=== PATIENT | male | born 1965 | race Caucasian/White ===

== ENCOUNTER 2019-01-14 11:56 | Emergency (ER) | payer OTHER ==
--- NOTE | 2019-01-14 12:35 | UC ---
Knee Pain HPI - HPI Summary HPI Summary: 53 yo male presents with RIGHT knee pain since 01/10. He tells me that he was getting up from his desk at work and felt that his right "gave out" and "bent backwards". Had immediate pain, but was able to continue walking. Since that time has had increased pain and feels that it is swollen. He has been trying to rest and elevate it, but with little relief. Yesterday he was walking and heard a loud pop in his knee. Feels unstable when he is walking. Has taken some ibuprofen for discomfort with little change. Denies numbness or tingling. - History of Current Complaint Stated Complaint: KNEE INJURY Time Seen by Provider: 01/14/19 12:35 Onset/Duration: Sudden Onset Severity Initially: Moderate Severity Currently: Moderate Pain Intensity: 5 Pain Scale Used: 0-10 Numeric - Allergies/Home Medications Allergies/Adverse Reactions: Allergies Allergy/AdvReac Type Severity Reaction Status Date / Time No Known Allergies Allergy Verified 01/14/19 12:43 Home Medications: Home Medications Varenicline 0.5 mg Tab(Nf) [Chantix 0.5 MG TAB(NF)] 0.5 mg PO BID MDD 2 [History Confirmed 01/14/19] PMH/Surg Hx/FS Hx/Imm Hx - Additional Past Medical History Additional PMH: None - Surgical History Surgical History: None - Family History Known Family History: Positive: None - Social History Occupation: Employed Full-time Lives: With Family Alcohol Use: Occasionally Substance Use Type: None Smoking Status (MU): Light Every Day Tobacco Smoker Type: Cigarettes Review of Systems All Other Systems Reviewed And Are Negative: Yes Constitutional: Positive: Negative Skin: Positive: Negative Respiratory: Positive: Negative Cardiovascular: Positive: Negative Neurovascular: Positive: Negative Musculoskeletal: Positive: Other: - Right knee pain Neurological: Positive: Negative Psychological: Positive: Negative Physical Exam - Summary Physical Exam Summary: GENERAL: NAD. WDWN. No pain distress. SKIN: No rashes, sores, lesions, or open wounds. CHEST: No accessory muscle use. Breathing comfortably and in no distress. CV: . Pulses intact popliteal, PT, and DP. Cap refill <2seconds MSK: RIGHT KNEE: Mild edema at joint line. Mild TTP at posterior knee. FROM with worsening pain during full extension. Strength 5/5. POSITIVE Anish. No patella apprehension. Negative Fara, A/P drawer, and varus/valgus stress. NEURO: Alert. Sensations intact and symmetric B/L LEs PSYCH: Age appropriate behavior. Triage Information Reviewed: Yes Vital Signs: Vital Signs: Temp Pulse Resp BP Pulse Ox 98.2 F 82 16 123/82 98 01/14/19 12:35 01/14/19 12:35 01/14/19 12:35 01/14/19 12:35 01/14/19 12:35 Vital Signs Reviewed: Yes Knee Pain Course/Dx - Course Course Of Treatment: XR: IMPRESSION: SMALL JOINT EFFUSION. Suspect meniscus injury. Advised to continue with RICE therapy and ibuprofen. Will refer him to physical and refer to Ortho. - Differential Dx/Diagnosis Provider Diagnosis: Internal derangement of right knee Discharge - Sign-Out/Discharge Documenting (check all that apply): Patient Departure All imaging exams completed and their final reports reviewed: Yes - Discharge Plan Condition: Stable Disposition: HOME Patient Education Materials: Knee Pain (ED), Meniscus Tear (ED) Referrals: Benjamin Damico DO [Primary Care Provider] - Amber Cowart MD [Medical Doctor] - If Needed Additional Instructions: If you develop a fever, shortness of breath, chest pain, new or worsening symptoms - please call your PCP or go to the ED. 1) Rest, Ice, and elevate your knee as much as possible to reduce pain and swelling 2) I recommend you try a knee brace for added support 3) Practice low impact exercises like biking and swimming to strengthen your knee. Follow up with physical therapy for exercises as well 4) If your symptoms worsen or do not improve - please call Orthopedics at the number below to schedule an appointment for further evaluation - Billing Disposition and Condition Condition: STABLE Disposition: Home
== END 2019-01-14 13:43 | disposition home or self-care (01) ==
LOC: UCEAST 11:56
DX: M23.91 Unspecified internal derangement of right knee (principal); M25.461 Effusion, right knee; F17.210 Nicotine dependence, cigarettes, uncomplicated
CPT/HCPCS: 99201; G0463